=== PATIENT | female | born 1995 | race Caucasian/White ===

== ENCOUNTER 2016-07-02 18:06 | Emergency (ER) | payer SELFPAY ==
[2016-07-02 19:07] VITALS: BP 115/78
--- NOTE | 2016-07-02 19:50 | UC ---
Complaint Female HPI - HPI Summary HPI Summary: compliant of pain with urination for the past 2 days increased frequency and urgency today started having flank pain intermittent bilaterally denies fever and chills took some cranberry supplements without relief - History Of Current Complaint Chief Complaint: UCGU Stated Complaint: BACK PAIN,BURNING URINATING Time Seen by Provider: 07/02/16 19:44 Hx Obtained From: Patient Hx Last Menstrual Period: MIRENA IUD - Allergies/Home Medications Allergies/Adverse Reactions: Allergies Allergy/AdvReac Type Severity Reaction Status Date / Time Cefaclor [From [facility]] Allergy Intermediate Rash Verified 07/02/16 19:07 Latex Allergy Intermediate Rash Verified 07/02/16 19:07 Penicillins Allergy Intermediate Rash Verified 07/02/16 19:07 Sulfa Drugs Allergy Intermediate Rash Verified 07/02/16 19:07 Home Medications: Home Medications Cranberry (Vaccinium Macrocarp [Cranberry] 1 pow XX 07/02/16 [History] PMH/Surg Hx/FS Hx/Imm Hx Previously Healthy: Yes Respiratory History Of: Reports: Asthma - Surgical History Surgical History: Yes Surgery Procedure, Year, and Place: 2 HERNIA REPAIR X2 - Family History Known Family History: Positive: None, Other - Positive FMH of poor dentition. Negative: Hypertension, Diabetes - Social History Occupation: Employed Full-time Lives: With Family Alcohol Use: Occasionally Substance Use Type: None Smoking Status (MU): Current Every Day Smoker Type: Cigarettes Amount Used/How Often: 4-5 CIG/DAY Household Exposure Type: Cigarettes - Immunization History Most Recent Influenza Vaccination: no Review of Systems Constitutional: Negative Skin: Negative Eyes: Negative ENT: Negative Respiratory: Negative Cardiovascular: Negative Gastrointestinal: Negative Genitourinary: Dysuria, Frequency, Urgency Motor: Negative Neurovascular: Negative Musculoskeletal: Negative Neurological: Negative Psychological: Negative All Other Systems Reviewed And Are Negative: Yes Physical Exam Triage Information Reviewed: Yes Appearance: No Pain Distress, Well-Nourished Vital Signs: Initial Vital Signs Temp 98.3 F 07/02/16 19:04 Pulse 66 07/02/16 19:04 Resp 16 07/02/16 19:04 BP 115/78 07/02/16 19:04 Pulse Ox 100 07/02/16 19:04 Vital Signs Reviewed: Yes Eyes: Positive: Conjunctiva Clear ENT: Positive: Pharynx normal, TMs normal Neck: Positive: No Lymphadenopathy Respiratory: Positive: Lungs clear, Normal breath sounds, No respiratory distress, No accessory muscle use Cardiovascular: Positive: RRR, No Murmur, Pulses Normal Abdomen Description: Positive: Nontender, No Organomegaly, Soft, CVA Tenderness (L). Negative: CVA Tenderness (R), Distended Bowel Sounds: Positive: Present Musculoskeletal: Positive: No Edema Neurological: Positive: Alert Psychological Exam: Normal Skin Exam: Normal Complaint Female Dx - Course Course Of Treatment: exam completed. will treat with cipro d/t left flank pain. discussed blood in urine and possibilitu of kidney stone. discussed s/s of when to seek emergent care - Differential Dx/Diagnosis Differential Diagnosis/HQI/PQRI: Urinary Tract Infection, Other - pylenephritis Provider Diagnoses: UTI- possible pyleonephritis Discharge - Discharge Plan Condition: Stable Disposition: HOME Prescriptions: Ciprofloxacin TAB* [Cipro 500 MG TAB*] 500 mg PO BID #14 tab Phenazopyridine TAB* [Pyridium 100 mg TAB*] 100 mg PO TID #6 tab Patient Education Materials: Urinary Tract Infection in Women (ED) Referrals: CARMELO Saavedra [Primary Care Provider] - Additional Instructions: Please take antibiotic as directed Increase fluids and rest Take acetaminophen or ibuprofen for fever or pain You have blood in your urine- if pain increase please go to the emergency room because you may have a kidney stone. Please review your discharge instructions. If your symptoms do not improve please call your primary care provider or return to urgent care.
[2016-07-02] MEDS ORDERED: Ciprofloxacin TAB* 500 MG PO ONE (19:53)
[2016-07-02] MEDS: Phenazopyridine TAB* 100 MG PO ONE ×2 (20:02→20:03)
== END 2016-07-02 20:08 | disposition home or self-care (01) ==
LOC: UCEAST 18:06
DX: N39.0 Urinary tract infection, site not specified (principal); J45.909 Unspecified asthma, uncomplicated; Z88.0 Allergy status to penicillin; Z88.2 Allergy status to sulfonamides; Z88.1 Allergy status to other antibiotic agents; Z91.040 Latex allergy status; F17.210 Nicotine dependence, cigarettes, uncomplicated
CPT/HCPCS: 81003; 87077; 87086; 99212; A9270-GY; G0463

== ENCOUNTER 2016-08-30 12:23 | Emergency (ER) | payer SELFPAY ==
[2016-08-30 12:45] VITALS: BP 109/78
--- NOTE | 2016-08-30 13:39 | UC ---
Dental HPI - HPI Summary HPI Summary: Pt presents with c/o dental fracture, pain and swelling to left upper canine. Pt has generalized poor dentition and is waiting for dental insurance to be available from new job to have teeth extracted and get dentures. - History of Current Complaint Chief Complaint: UCDentalProblem Stated Complaint: DENTAL PAIN Time Seen by Provider: 08/30/16 12:51 Hx Obtained From: Patient Hx Last Menstrual Period: MIRENA IUD Onset/Duration: Gradual Onset Severity: Moderate Pain Intensity: 6 Pain Scale Used: 0-10 Numeric Aggravating: Heat, Cold, Chewing Related History: Swelling - Allergies/Home Medications Allergies/Adverse Reactions: Allergies Allergy/AdvReac Type Severity Reaction Status Date / Time Cefaclor [From [facility]] Allergy Intermediate Rash Verified 07/02/16 19:07 Latex Allergy Intermediate Rash Verified 07/02/16 19:07 Penicillins Allergy Intermediate Rash Verified 07/02/16 19:07 Sulfa Drugs Allergy Intermediate Rash Verified 07/02/16 19:07 PMH/Surg Hx/FS Hx/Imm Hx Previously Healthy: Yes - Surgical History Surgical History: Yes Surgery Procedure, Year, and Place: 2 HERNIA REPAIR X2 - Family History Known Family History: Positive: Other - Positive FMH of poor dentition. Negative: Hypertension, Diabetes - Social History Alcohol Use: Occasionally Substance Use Type: None Smoking Status (MU): Current Every Day Smoker Type: Cigarettes Amount Used/How Often: 4-5 CIG/DAY Household Exposure Type: Cigarettes - Immunization History Most Recent Influenza Vaccination: no Review of Systems Constitutional: Negative Skin: Negative Eyes: Negative ENT: Dental Pain - gum swelling, gross dental decay and poor dentition Respiratory: Negative Cardiovascular: Negative Gastrointestinal: Negative Genitourinary: Negative Motor: Negative Neurovascular: Negative Musculoskeletal: Negative Neurological: Negative Psychological: Negative All Other Systems Reviewed And Are Negative: Yes Physical Exam Triage Information Reviewed: Yes Appearance: Well-Appearing Vital Signs: Initial Vital Signs Temp 98.2 F 08/30/16 12:42 Pulse 79 08/30/16 12:42 Resp 16 08/30/16 12:42 BP 109/78 08/30/16 12:42 Pulse Ox 100 08/30/16 12:42 Vital Signs Reviewed: Yes Eye Exam: Normal ENT Exam: Normal Dental Exam: Other Dental: Positive: Percussion Tenderness @ - generalized, Gross Decay/Caries @, Dental Fracture @ - multiple, Abscess @ - left upper gum above canine Neck exam: Normal Respiratory Exam: Normal Respiratory: Positive: No respiratory distress Musculoskeletal Exam: Normal Neurological Exam: Normal Psychological Exam: Normal Skin Exam: Normal Dental Complaint Course/Dx - Differential Dx/Diagnosis Differential Diagnosis/Dx: Dental Abscess, Dental Caries, Fractured Tooth Provider Diagnoses: dental abscess. poor dentition Discharge - Discharge Plan Condition: Stable Disposition: HOME Prescriptions: Clindamycin CAP* [Cleocin 150 MG CAP*] 150 mg PO Q6H #60 cap Patient Education Materials: Dental Abscess (ED), Acute Dental Trauma (ED) Referrals: CARMELO Saavedra [Primary Care Provider] - Kasi Bahena DMD [Doctor of Dental Medicine] - Additional Instructions: Please follow up with your dental care provider. We have referred you to an oral surgeon for evaluation of your dental care needs.
== END 2016-08-30 13:02 | disposition home or self-care (01) ==
LOC: UCCORT 12:23
DX: K04.7 Periapical abscess without sinus (principal); Z88.0 Allergy status to penicillin; Z88.2 Allergy status to sulfonamides; Z88.1 Allergy status to other antibiotic agents; Z91.040 Latex allergy status; F17.210 Nicotine dependence, cigarettes, uncomplicated
CPT/HCPCS: 99212; G0463

== ENCOUNTER 2017-02-24 13:10 | Emergency (ER) | payer SELFPAY ==
--- NOTE | 2017-02-24 15:15 | UC ---
Complaint Female HPI - HPI Summary HPI Summary: pain and burning with urination urinary incont today - History Of Current Complaint Chief Complaint: UCGU Stated Complaint: URINARY Time Seen by Provider: 02/24/17 15:13 Hx Obtained From: Patient Hx Last Menstrual Period: MIRENA IUD ?: No Onset/Duration: Gradual Onset, Lasting Days, Still Present, Worse Since - today Timing: Constant Severity Initially: Mild Severity Currently: Moderate Character: Burning Aggravating Factor(s): Urination Alleviating Factor(s): Nothing Associated Signs And Symptoms: Positive: Negative - Allergies/Home Medications Allergies/Adverse Reactions: Allergies Allergy/AdvReac Type Severity Reaction Status Date / Time Cefaclor [From Ceclor] Allergy Intermediate Rash Verified 02/24/17 15:19 Latex Allergy Intermediate Rash Verified 02/24/17 15:19 Penicillins Allergy Intermediate Rash Verified 02/24/17 15:19 Sulfa Drugs Allergy Intermediate Rash Verified 02/24/17 15:19 PMH/Surg Hx/FS Hx/Imm Hx Previously Healthy: Yes - Surgical History Surgical History: Yes Surgery Procedure, Year, and Place: 2 HERNIA REPAIR X2 - Family History Known Family History: Positive: None Negative: Hypertension, Diabetes - Social History Occupation: Unemployed Lives: With Family Alcohol Use: Occasionally Substance Use Type: None Smoking Status (MU): Current Every Day Smoker Type: Cigarettes Amount Used/How Often: 4-5 CIG/DAY Household Exposure Type: Cigarettes Cessation Counseling: Patient Advised to Stop - Immunization History Most Recent Influenza Vaccination: no Review of Systems Constitutional: Negative Skin: Negative Eyes: Negative ENT: Negative Respiratory: Negative Cardiovascular: Negative Gastrointestinal: Negative Genitourinary: Dysuria, Hematuria, Frequency, Urgency Motor: Negative Neurovascular: Negative Musculoskeletal: Negative Neurological: Negative Psychological: Negative Is Patient Immunocompromised?: No All Other Systems Reviewed And Are Negative: Yes Physical Exam Triage Information Reviewed: Yes Appearance: Well-Appearing, No Pain Distress, Well-Nourished Vital Signs Reviewed: Yes Eye Exam: Normal Eyes: Positive: Conjunctiva Clear ENT Exam: Normal ENT: Positive: Normal ENT inspection, Hearing grossly normal, Pharynx normal, Uvula midline. Negative: Nasal congestion, TMs normal, Tonsillar swelling, Dental tenderness, Sinus tenderness Dental Exam: Normal Neck exam: Normal Neck: Positive: Supple, Nontender Respiratory Exam: Normal Respiratory: Positive: Chest non-tender, No respiratory distress, No accessory muscle use Cardiovascular Exam: Normal Cardiovascular: Positive: RRR, Pulses Normal, Brisk Capillary Refill Abdominal Exam: Normal Abdomen Description: Positive: No Organomegaly, Soft, Other: - suprapubic tenderness. Negative: CVA Tenderness (R), CVA Tenderness (L), Distended, Guarding, McBurney's Point Tenderness Bowel Sounds: Positive: Present Musculoskeletal Exam: Normal Musculoskeletal: Positive: Strength Intact, ROM Intact, No Edema Neurological Exam: Normal Neurological: Positive: Alert, Muscle Tone Normal Psychological Exam: Normal Skin Exam: Normal Diagnostics - Laboratory Diagnostic Studies Completed/Ordered: + 1 Leuko Complaint Female Dx - Course Course Of Treatment: macrobid, pyridium, increase fluids follow with pcp prn, culture urine - Differential Dx/Diagnosis Provider Diagnoses: urinary tract infection Discharge - Discharge Plan Condition: Stable Disposition: HOME Prescriptions: Nitrofurantoin Monohyd Macro [Macrobid] 100 mg PO BID #10 cap Phenazopyridine TAB* [Pyridium 100 mg TAB*] 100 mg PO TID PRN #9 tab PRN Reason: urinary pain and burning Patient Education Materials: Phenazopyridine (By mouth), Urinary Tract Infection in Women (ED) [place]: [facility] [place] [facility] [place]] - If Needed
[2017-02-24 15:19] VITALS: BP 110/63
--- NOTE | 2017-02-28 12:16 | UC ---
- Progress Note Progress Note: no change Course/Dx - Course Course Of Treatment: macrobid, pyridium, increase fluids follow with pcp prn, culture urine
== END 2017-02-24 15:34 | disposition home or self-care (01) ==
LOC: UCCORT 13:10
DX: N39.0 Urinary tract infection, site not specified (principal); F17.210 Nicotine dependence, cigarettes, uncomplicated; Z88.1 Allergy status to other antibiotic agents; Z88.0 Allergy status to penicillin; Z88.2 Allergy status to sulfonamides; Z91.040 Latex allergy status
CPT/HCPCS: 81003; 84702; 87077; 87086; 87186; 99212; G0463

== ENCOUNTER 2017-04-18 10:26 | Emergency (ER) | payer SELFPAY ==
[2017-04-18 11:41] VITALS: BP 113/63
--- NOTE | 2017-04-18 12:03 | ED ---
Upper Extremity Pain - HPI Summary HPI Summary: 21 yr old with the complaint of left hand pain. The patient states a month ago she was sleeping and woke up with left hand middle finger pain. She states she was sleeping on a clenched fist. Ever since then she feels like she has trouble flexing and extending the left middle finger. No fever, chills, swelling, bruising. No obvious history of any trauma. She has no other complaints. - History of Current Complaint Chief Complaint: UCUpperExtremity Stated Complaint: LEFT MIDDLE FINGER COMPLAINT Time Seen by Provider: 04/18/17 11:42 Hx Last Menstrual Period: HAS AN IUD, DOES NOT HAVE REG PERIODS - Allergies/Home Medications Allergies/Adverse Reactions: Allergies Allergy/AdvReac Type Severity Reaction Status Date / Time cefaclor [From Ceclor] Allergy Unknown Rash Verified 04/18/17 11:32 latex Allergy Unknown Rash Verified 04/18/17 11:32 Penicillins Allergy Unknown Rash Verified 04/18/17 11:32 Sulfa (Sulfonamide Allergy Unknown Rash Verified 04/18/17 11:32 Antibiotics) Home Medications: Home Medications Acetaminophen [Pain Relief] 500 mg PO PRN 04/18/17 [History] PMH/Surg Hx/FS Hx/Imm Hx Respiratory History: Reports: Hx Asthma - Surgical History Surgery Procedure, Year, and Place: 2 HERNIA REPAIR X2 Infectious Disease History: No Infectious Disease History: Denies: Traveled Outside the [place] in Last 30 Days - Family History Known Family History: Positive: None, Other - Positive FMH of poor dentition. Negative: Hypertension, Diabetes - Social History Occupation: Employed Full-time Alcohol Use: Rare Substance Use Type: Reports: None Smoking Status (MU): Light Every Day Tobacco Smoker Type: Cigarettes Amount Used/How Often: LESS THAN 1/2 PPD Review of Systems Constitutional: Negative Positive: Other - left middle finger pain All Other Systems Reviewed And Are Negative: Yes Physical Exam Triage Information Reviewed: Yes Vital Signs On Initial Exam: Initial Vitals Temp Pulse Resp BP Pulse Ox 98.1 F 73 16 113/63 99 04/18/17 11:34 04/18/17 11:34 04/18/17 11:34 04/18/17 11:34 04/18/17 11:34 Vital Signs Reviewed: Yes Appearance: Positive: Well-Appearing, No Pain Distress Skin: Positive: Warm Eyes: Positive: EOMI Neck: Positive: Nontender Respiratory/Lung Sounds: Positive: Clear to Auscultation Cardiovascular: Positive: Pulses are Symmetrical in both Upper and Lower Extremities - radial Musculoskeletal: Positive: Other - left hand without deformity, no sts, no bruising, no swelling, no increase warmth. I am able to flex and extend her left middle finger at the DIP, PIP and MP joints passively and she has some tenderness in the palm over the middle finger flexor tendon. No mass or swelling. She has intact capillary refill. Diagnostics - Vital Signs Vital Signs Temp Pulse Resp BP Pulse Ox 04/18/17 11:34 98.1 F 73 16 113/63 99 - Laboratory Lab Statement: Any lab studies that have been ordered have been reviewed, and results considered in the medical decision making process. - Radiology left hand Xray Interpretation: No Acute Changes Radiology Interpretation Completed By: Radiologist Course/Dx - Course Course Of Treatment: 21 yr old female with left hand pain. - Diagnoses Provider Diagnoses: Tendinitis of flexor tendon of left hand Discharge - Discharge Plan Condition: Good Disposition: HOME Prescriptions: Ibuprofen TAB* [Motrin TAB* 600 MG] 600 mg PO Q6H PRN #14 tab PRN Reason: Pain Patient Education Materials: Tendinitis (ED) Forms: *Work Release Referrals: CARMELO Saavedra [Primary Care Provider] - Virginia Garcia MD [Medical Doctor] - 2 Days Jose Gao MD [Medical Doctor] - 2 Days
--- NOTE | 2017-04-18 12:07 | RAD ---
INDICATION: Left hand pain COMPARISON: None TECHNIQUE: AP, lateral, and oblique views were obtained. FINDINGS: The bony structures, joint spaces, and soft tissues are normal for age. IMPRESSION: NEGATIVE EXAMINATION.
== END 2017-04-18 12:38 | disposition home or self-care (01) ==
LOC: UCCORT 10:26
DX: M77.9 Enthesopathy, unspecified (principal); F17.210 Nicotine dependence, cigarettes, uncomplicated
CPT/HCPCS: 99212; G0463

== ENCOUNTER 2017-05-16 08:22 | Emergency (ER) | payer SELFPAY ==
[2017-05-16 08:38] VITALS: BP 97/66
--- NOTE | 2017-05-16 08:56 | UC ---
UC Dental HPI - HPI Summary HPI Summary: Pt c/o sudden onset right facial cheek swelling and generalized teeth tenderness. - History of Current Complaint Chief Complaint: UCDentalProblem Stated Complaint: DENTAL COMPLAINT Time Seen by Provider: 05/16/17 08:46 Hx Obtained From: Patient Hx Last Menstrual Period: IUD ?: No Onset/Duration: Sudden Onset, Lasting Hours Severity: Mild Pain Intensity: 3 Aggravating Factor(s): Heat, Cold, Chewing Alleviating Factor(s): OTC Meds Related History: Swelling - Allergies/Home Medications Allergies/Adverse Reactions: Allergies Allergy/AdvReac Type Severity Reaction Status Date / Time cefaclor [From Ceclor] Allergy Unknown Rash Verified 05/16/17 08:38 latex Allergy Unknown Rash Verified 05/16/17 08:38 Penicillins Allergy Unknown Rash Verified 05/16/17 08:38 Sulfa (Sulfonamide Allergy Unknown Rash Verified 05/16/17 08:38 Antibiotics) PMH/Surg Hx/FS Hx/Imm Hx Previously Healthy: Yes - Surgical History Surgical History: Yes Surgery Procedure, Year, and Place: 2 HERNIA REPAIR X2 - Family History Known Family History: Positive: None, Other - Positive FMH of poor dentition. Negative: Hypertension, Diabetes - Social History Occupation: Employed Full-time Lives: With Family Alcohol Use: Rare Substance Use Type: None Smoking Status (MU): Light Every Day Tobacco Smoker Type: Cigarettes Amount Used/How Often: LESS THAN 1/2 PPD Have You Smoked in the Last Year: Yes Household Exposure Type: Cigarettes - Immunization History Most Recent Influenza Vaccination: no Review of Systems Constitutional: Negative Skin: Negative Eyes: Negative ENT: Dental Pain Respiratory: Negative Cardiovascular: Negative Gastrointestinal: Negative Genitourinary: Negative Motor: Negative Neurovascular: Negative Musculoskeletal: Negative Neurological: Negative Psychological: Negative Is Patient Immunocompromised?: No All Other Systems Reviewed And Are Negative: Yes Physical Exam Triage Information Reviewed: Yes Appearance: Ill-Appearing, Pain Distress Vital Signs: Initial Vital Signs Temp 98.2 F 05/16/17 08:33 Pulse 82 05/16/17 08:33 Resp 18 05/16/17 08:33 BP 97/66 05/16/17 08:33 Pulse Ox 100 05/16/17 08:33 Vital Signs Reviewed: Yes Eye Exam: Normal ENT Exam: Normal Dental Exam: Other Dental: Positive: Percussion Tenderness @ - right upper molars, Gross Decay/ Caries @, Abscess @ - right upper gum Neck exam: Normal Respiratory Exam: Normal Cardiovascular Exam: Normal Musculoskeletal Exam: Normal Neurological Exam: Normal Psychological Exam: Normal Skin Exam: Normal Dental Complaint Course/Dx - Differential Dx/Diagnosis Differential Diagnosis/Dx: Dental Abscess, Dental Caries, Fractured Tooth Provider Diagnoses: dental abscess Discharge - Sign-Out/Discharge Documenting (check all that apply): Discharge - Discharge Plan Condition: Stable Disposition: HOME Prescriptions: Clindamycin Cap(NF) [Clindamycin Cap 300 mg Cap(NF)] 300 mg PO Q8H #30 cap Magic Mouth Was-TANJA/MAAL/LIDO* 5 ml SWISH SPIT QID PRN #100 ml PRN Reason: Pain predniSONE TAB* [Deltasone TAB*] 30 mg PO DAILY #9 tab Patient Education Materials: Dental Abscess (ED) Referrals: CARMELO Saavedra [Primary Care Provider] - Additional Instructions: Please follow up with a Dental care provider as soon as possible. We have provided a list of dental care providers for you as a reference. - Billing Disposition and Condition Condition: STABLE Disposition: HOME
== END 2017-05-16 09:04 | disposition home or self-care (01) ==
LOC: UCCORT 08:22
DX: K04.7 Periapical abscess without sinus (principal); Z88.0 Allergy status to penicillin; Z88.2 Allergy status to sulfonamides; Z88.1 Allergy status to other antibiotic agents; Z91.040 Latex allergy status; F17.210 Nicotine dependence, cigarettes, uncomplicated
CPT/HCPCS: 99212; G0463

== ENCOUNTER 2017-07-09 09:56 | Emergency (ER) | payer OTHER ==
[2017-07-09 10:13] VITALS: BP 107/61
--- NOTE | 2017-07-09 11:01 | UC ---
Dental HPI - HPI Summary HPI Summary: Pt present with dental pain - pt with recurrent dental infections. does not currently have a dentist - states recently got tetanus Pt denies fever, chills Pain started last night + TTP No fevers Pt took Motrin and Tylenol with little relif Pt has had similar before Pt's medications reviewed this visit - History of Current Complaint Chief Complaint: UCDentalProblem Stated Complaint: oral complaint Time Seen by Provider: 07/09/17 10:43 Hx Obtained From: Patient Hx Last Menstrual Period: unknown Onset/Duration: Gradual Onset Severity: Moderate Pain Intensity: 6 Pain Scale Used: 0-10 Numeric Aggravating Factor(s): Nothing Alleviating Factor(s): Nothing - Allergies/Home Medications Allergies/Adverse Reactions: Allergies Allergy/AdvReac Type Severity Reaction Status Date / Time cefaclor [From [facility]] Allergy Unknown Rash Verified 07/09/17 10:07 latex Allergy Unknown Rash Verified 07/09/17 10:07 Penicillins Allergy Unknown Rash Verified 07/09/17 10:07 Sulfa (Sulfonamide Allergy Unknown Rash Verified 07/09/17 10:07 Antibiotics) Home Medications: Home Medications Acetaminophen 650 mg PO ONCE PRN 07/09/17 [History Confirmed 07/09/17] PMH/Surg Hx/FS Hx/Imm Hx Previously Healthy: Yes - Surgical History Surgical History: Yes Surgery Procedure, Year, and Place: 2 HERNIA REPAIR X2 - Family History Known Family History: Positive: None, Other - Positive FMH of poor dentition. Negative: Hypertension, Diabetes - Social History Occupation: Employed Full-time Lives: With Family Alcohol Use: Rare Substance Use Type: None Smoking Status (MU): Heavy Every Day Tobacco Smoker Type: Cigarettes Amount Used/How Often: 1/2 PPD Have You Smoked in the Last Year: Yes Household Exposure Type: Cigarettes - Immunization History Most Recent Influenza Vaccination: no Review of Systems Constitutional: Negative Skin: Negative ENT: Dental Pain All Other Systems Reviewed And Are Negative: Yes Physical Exam Triage Information Reviewed: Yes Appearance: Well-Appearing, No Pain Distress, Well-Nourished Vital Signs: Initial Vital Signs Temp 98.6 F 07/09/17 10:08 Pulse 77 07/09/17 10:08 Resp 18 07/09/17 10:08 BP 107/61 07/09/17 10:08 Pulse Ox 100 07/09/17 10:08 Vital Signs Reviewed: Yes Eye Exam: Normal Eyes: Positive: Conjunctiva Clear ENT Exam: Normal ENT: Positive: Normal ENT inspection, Hearing grossly normal, TMs normal Dental: Positive: Other: - Pt with extensive dental caries and gingival disease + TTP #8 with large cavity No fluctuance no edema, bleeding no facial edema Neck exam: Normal Neck: Positive: 1 Respiratory Exam: Normal Respiratory: Positive: Chest non-tender, Lungs clear, Normal breath sounds, No respiratory distress, No accessory muscle use Cardiovascular Exam: Normal Cardiovascular: Positive: RRR, No Murmur Abdominal Exam: Normal Abdomen Description: Positive: Nontender, No Organomegaly, Soft Bowel Sounds: Positive: Present Musculoskeletal Exam: Normal Musculoskeletal: Positive: Strength Intact Neurological Exam: Normal Neurological: Positive: Alert Psychological Exam: Normal Skin Exam: Normal Dental Complaint Course/Dx - Course Course Of Treatment: Pt with dental pain. Pt with poor dentition. Will start clinda. motrin/apap. ambusol. dental referral lists given - Differential Dx/Diagnosis Provider Diagnoses: dental pain Discharge - Sign-Out/Discharge Documenting (check all that apply): Discharge/Admit/Transfer - Discharge Plan Condition: Stable Disposition: HOME Prescriptions: Clindamycin HCl 300 mg PO Q8HR #30 capsule Patient Education Materials: Toothache (ED) Referrals: CARMELO Saavedra [Primary Care Provider] - Additional Instructions: - Okay to alternate ibuprofen (Advil, Motrin) 600mg and Tylenol every 3 hours for pain. Take with food. Do NOT take for more than 4-5 days -Swish and spit with warm salt water 3-4 times a day -Take anitbiotics as prescribed until gone -Stay well hydrated - avoid excess caffeine and all alcohol -Contact a clinic or go to the walk in clinic from the list provided to you today. If you develop swelling inside your mouth, difficulty with chewing or any other concerns it is recommended you go to the emergency department for further management - Billing Disposition and Condition Condition: STABLE Disposition: HOME
[2017-07-09] MEDS ORDERED: Ibuprofen TAB* 200 MG PO ONE (11:10)
== END 2017-07-09 11:23 | disposition home or self-care (01) ==
LOC: UCCORT 09:56
DX: K08.89 Other specified disorders of teeth and supporting structures (principal); F17.210 Nicotine dependence, cigarettes, uncomplicated; Z88.3 Allergy status to other anti-infective agents; Z88.0 Allergy status to penicillin; Z88.5 Allergy status to narcotic agent
CPT/HCPCS: 99212; A9270-GY; G0463

== ENCOUNTER 2018-01-11 14:41 | Emergency (ER) | payer OTHER ==
[2018-01-11 15:12] VITALS: BP 114/72
--- NOTE | 2018-01-11 15:38 | UC ---
UC General HPI - HPI Summary HPI Summary: 1. 2 day hx white vaginal d/c with some itching and a little burn with urination but no frequency or urgency. 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 whic was neg. states hx yeast infection and this feels the same. 2. 7 day hx sinus congestion and green discharge. no fever. - History of Current Complaint Chief Complaint: UCRespiratory Stated Complaint: SINUS CONCERN Time Seen by Provider: 01/11/18 15:31 Hx Obtained From: Patient Hx Last Menstrual Period: IUD Onset/Duration: Gradual Onset Pain Intensity: 6 Associated Signs & Symptoms: Negative: Agitation, Fever - Allergy/Home Medications Allergies/Adverse Reactions: Allergies Allergy/AdvReac Type Severity Reaction Status Date / Time cefaclor [From Ceclor] Allergy Unknown Rash Verified 01/11/18 15:07 latex Allergy Unknown Rash Verified 01/11/18 15:07 Penicillins Allergy Unknown Rash Verified 01/11/18 15:07 Sulfa (Sulfonamide Allergy Unknown Rash Verified 01/11/18 15:07 Antibiotics) PMH/Surg Hx/FS Hx/Imm Hx Previously Healthy: Yes - Surgical History Surgical History: Yes Surgery Procedure, Year, and Place: 2 HERNIA REPAIR - Family History Known Family History: Positive: None, Other - Positive FMH of poor dentition. Negative: Hypertension, Diabetes - Social History Alcohol Use: Rare Substance Use Type: None Smoking Status (MU): Heavy Every Day Tobacco Smoker Type: Cigarettes Amount Used/How Often: 1/2 PPD Have You Smoked in the Last Year: Yes Household Exposure Type: Cigarettes - Immunization History Most Recent Influenza Vaccination: no Most Recent Tetanus Shot: UTD Vaccination Up to Date: Yes Review of Systems All Other Systems Reviewed And Are Negative: Yes Constitutional: Positive: Negative Skin: Positive: Negative Eyes: Positive: Negative ENT: Positive: Nasal Discharge, Sinus Congestion, Sinus Pain/Tenderness Respiratory: Positive: Negative Cardiovascular: Positive: Negative Gastrointestinal: Positive: Negative Genitourinary: Positive: Dysuria, Vaginal/Penile Itching, Vaginal/Penile Discharge Motor: Positive: Negative Neurovascular: Positive: Negative Musculoskeletal: Positive: Negative Neurological: Positive: Negative Psychological: Positive: Negative Is Patient Immunocompromised?: No Physical Exam Triage Information Reviewed: Yes Appearance: Well-Appearing Vital Signs: Initial Vital Signs Temp 98.3 F 01/11/18 15:08 Pulse 87 01/11/18 15:08 Resp 14 01/11/18 15:08 BP 114/72 01/11/18 15:08 Pulse Ox 100 01/11/18 15:08 Vital Signs Reviewed: Yes Eyes: Positive: Conjunctiva Clear ENT: Positive: Pharynx normal, Nasal congestion, Nasal drainage - clear, TMs normal. Negative: Sinus tenderness Neck: Positive: Supple, Nontender, No Lymphadenopathy Respiratory: Positive: Lungs clear, Normal breath sounds Cardiovascular: Positive: RRR, No Murmur Abdomen Description: Positive: Nontender, No Organomegaly, Soft. 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. Musculoskeletal: Positive: ROM Intact Neurological: Positive: Alert Psychological: Positive: Age Appropriate Behavior Skin Exam: Normal Course/Dx - Course Course Of Treatment: pt declined pelvic exam thus will tx for presumptive yeast vaginitis. - Differential Dx - Multi-Symptom Provider Diagnoses: uri. vaginitis Discharge - Sign-Out/Discharge Documenting (check all that apply): Patient Departure All imaging exams completed and their final reports reviewed: No Studies - Discharge Plan Condition: Stable Disposition: HOME Prescriptions: Fluconazole [Diflucan 150 MG (NF)] 150 mg PO ONCE #1 tab Patient Education Materials: Vaginitis (ED), Upper Respiratory Infection (DC) Referrals: CARMELO Saavedra [Medical Doctor] - Additional Instructions: if not better within 5 days or sooner if worse. - Billing Disposition and Condition Condition: STABLE Disposition: Home
== END 2018-01-11 15:51 | disposition home or self-care (01) ==
LOC: UCCORT 14:41
DX: N76.0 Acute vaginitis (principal); J06.9 Acute upper respiratory infection, unspecified; J34.89 Other specified disorders of nose and nasal sinuses; F17.210 Nicotine dependence, cigarettes, uncomplicated; Z88.1 Allergy status to other antibiotic agents; Z88.0 Allergy status to penicillin; Z88.2 Allergy status to sulfonamides; Z91.040 Latex allergy status
CPT/HCPCS: 81003; 87086; 99212; G0463

== ENCOUNTER 2018-03-02 13:37 | Emergency (ER) | payer OTHER ==
[2018-03-02 13:58] VITALS: BP 177/77
--- NOTE | 2018-03-02 14:03 | UC ---
Eye Complaint HPI - HPI Summary HPI Summary: Pt c/o sudden onset of left eye redness, "itchiness", green discharge that began this afternoon . denies injury. - History of Current Complaint Chief Complaint: UCEye Stated Complaint: LEFT EYE CONCERN Time Seen by Provider: 03/02/18 13:56 Hx Obtained From: Patient Hx Last Menstrual Period: IUD ?: No Onset/Duration: Sudden Onset, Still Present Timing: Constant Severity Initially: Mild Severity Currently: Mild Pain Intensity: 0 Associated Signs And Symptoms: Positive: Drainage (Purulent) - Risk Factors Penetrating Injury Risk Factor: Negative Globe Rupture Risk Factors: Negative Acute Glaucoma Risk Factors: Negative Optic Artery Occlusion Risk Factors: Negative - Allergies/Home Medications Allergies/Adverse Reactions: Allergies Allergy/AdvReac Type Severity Reaction Status Date / Time cefaclor [From Ceclor] Allergy Unknown Rash Verified 01/11/18 15:07 latex Allergy Unknown Rash Verified 01/11/18 15:07 Penicillins Allergy Unknown Rash Verified 01/11/18 15:07 Sulfa (Sulfonamide Allergy Unknown Rash Verified 01/11/18 15:07 Antibiotics) PMH/Surg Hx/FS Hx/Imm Hx Previously Healthy: Yes - Surgical History Surgical History: Yes Surgery Procedure, Year, and Place: 2 HERNIA REPAIR - Family History Known Family History: Positive: None, Other - Positive FMH of poor dentition. Negative: Hypertension, Diabetes - Social History Occupation: Employed Full-time Lives: With Family Alcohol Use: Rare Substance Use Type: None Smoking Status (MU): Heavy Every Day Tobacco Smoker Type: Cigarettes Amount Used/How Often: 1/2 PPD Have You Smoked in the Last Year: Yes Household Exposure Type: Cigarettes - Immunization History Most Recent Influenza Vaccination: no Most Recent Tetanus Shot: UTD Vaccination Up to Date: Yes Review of Systems All Other Systems Reviewed And Are Negative: Yes Constitutional: Positive: Negative Skin: Positive: Negative Eyes: Positive: Drainage, Eye Redness ENT: Positive: Negative Respiratory: Positive: Negative Cardiovascular: Positive: Negative Gastrointestinal: Positive: Negative Genitourinary: Positive: Negative Motor: Positive: Negative Neurovascular: Positive: Negative Musculoskeletal: Positive: Negative Neurological: Positive: Negative Psychological: Positive: Negative Is Patient Immunocompromised?: No Physical Exam Triage Information Reviewed: Yes Appearance: Well-Appearing Vital Signs: Initial Vital Signs Temp 98.8 F 03/02/18 13:55 Pulse 86 03/02/18 13:55 Resp 20 03/02/18 13:55 BP 177/77 03/02/18 13:55 Pulse Ox 100 03/02/18 13:55 Vital Signs Reviewed: Yes Eyes: Positive: Conjunctiva Inflamed, Discharge - green ENT Exam: Normal Dental Exam: Normal Neck exam: Normal Respiratory: Positive: No respiratory distress Musculoskeletal Exam: Normal Neurological Exam: Normal Psychological Exam: Normal Skin Exam: Normal Eye Complaint Course/Dx - Differential Dx/Diagnosis Differential Diagnosis/HQI/PQRI: Conjunctivitis Provider Diagnosis: Conjunctivitis, left eye Discharge - Sign-Out/Discharge Documenting (check all that apply): Patient Departure All imaging exams completed and their final reports reviewed: No Studies - Discharge Plan Condition: Stable Disposition: HOME Prescriptions: Ofloxacin 0.3% (Eye Drop) [Ocuflox OPTH 0.3% (Eye Drop)] 3 drop LEFT EYE Q8H 7 Days #1 btl Patient Education Materials: Conjunctivitis (ED) Referrals: [facility] [Outside] No Primary Care Phys,NOPCP [Primary Care Provider] - - Billing Disposition and Condition Condition: STABLE Disposition: Home
== END 2018-03-02 14:08 | disposition home or self-care (01) ==
LOC: UCCORT 13:37
DX: H10.9 Unspecified conjunctivitis (principal); Z88.0 Allergy status to penicillin; Z88.1 Allergy status to other antibiotic agents
CPT/HCPCS: 99212; G0463

== ENCOUNTER 2018-12-14 12:27 | Emergency (ER) | payer OTHER ==
[2018-12-14 12:48] VITALS: BP 103/65
--- NOTE | 2018-12-14 13:11 | UC ---
Complaint Female HPI - HPI Summary HPI Summary: Pt presents with c/o sudden onset of Pelvic pressure, low back ache, and urgency X 4 days. - History Of Current Complaint Chief Complaint: UCGU Stated Complaint: URINARY COMPLAINT Time Seen by Provider: 12/14/18 12:51 Hx Obtained From: Patient Hx Last Menstrual Period: IUD ?: No Onset/Duration: Sudden Onset, Lasting Days, Still Present Timing: Constant Severity Initially: Mild Severity Currently: Mild Pain Intensity: 5 Character: Dull, Burning Aggravating Factor(s): Urination Alleviating Factor(s): Nothing Associated Signs And Symptoms: Positive: Back Pain - back ache - Risk Factors Ectopic Risk Factor: IUD Use Ovarian Torsion Risk Factor: Reproductive Age - Allergies/Home Medications Allergies/Adverse Reactions: Allergies Allergy/AdvReac Type Severity Reaction Status Date / Time cefaclor [From [facility]] Allergy Unknown Rash Verified 12/14/18 12:45 latex Allergy Unknown Rash Verified 12/14/18 12:45 Penicillins Allergy Unknown Rash Verified 12/14/18 12:45 Sulfa (Sulfonamide Allergy Unknown Rash Verified 12/14/18 12:45 Antibiotics) Home Medications: Home Medications Ibuprofen TAB* [Motrin TAB* 400 MG] 400 mg PO Q6H PRN 12/14/18 [History Confirmed 12/14/18] PMH/Surg Hx/FS Hx/Imm Hx Previously Healthy: Yes - Surgical History Surgical History: Yes Surgery Procedure, Year, and Place: 2 HERNIA REPAIR - Family History Known Family History: Positive: None, Other - Positive FMH of poor dentition. Negative: Hypertension, Diabetes - Social History Occupation: Employed Full-time Lives: With Family Alcohol Use: Rare Substance Use Type: None Smoking Status (MU): Heavy Every Day Tobacco Smoker Type: Cigarettes Amount Used/How Often: 1/2 PPD Have You Smoked in the Last Year: Yes Household Exposure Type: Cigarettes - Immunization History Most Recent Influenza Vaccination: no Most Recent Tetanus Shot: UTD Vaccination Up to Date: Yes Review of Systems All Other Systems Reviewed And Are Negative: Yes Constitutional: Positive: Negative Skin: Positive: Negative Eyes: Positive: Negative ENT: Positive: Negative Respiratory: Positive: Negative Cardiovascular: Positive: Negative Gastrointestinal: Positive: Negative Genitourinary: Positive: Frequency, Urgency Motor: Positive: Negative Neurovascular: Positive: Negative Musculoskeletal: Positive: Negative Neurological: Positive: Negative Psychological: Positive: Negative Is Patient Immunocompromised?: No Physical Exam Triage Information Reviewed: Yes Appearance: Well-Appearing Vital Signs: Initial Vital Signs Temp 98.8 F 12/14/18 12:43 Pulse 78 12/14/18 12:43 Resp 14 12/14/18 12:43 BP 103/65 12/14/18 12:43 Pulse Ox 99 12/14/18 12:43 Vital Signs Reviewed: Yes Eye Exam: Normal ENT Exam: Normal Dental Exam: Normal Neck exam: Normal Respiratory: Positive: No respiratory distress Musculoskeletal Exam: Normal Neurological Exam: Normal Psychological Exam: Normal Skin Exam: Normal Complaint Female Dx - Differential Dx/Diagnosis Differential Diagnosis/HQI/PQRI: Sexually Transmitted Disease, Urinary Tract Infection Provider Diagnosis: UTI (urinary tract infection) Discharge ED - Sign-Out/Discharge Documenting (check all that apply): Patient Departure All imaging exams completed and their final reports reviewed: No Studies - Discharge Plan Condition: Stable Disposition: HOME Prescriptions: Nitrofurantoin Monohyd/M-Cryst [Macrobid 100 mg Capsule] 100 mg PO Q12H #10 cap Patient Education Materials: Urinary Tract Infection in Women (ED) Referrals: [facility] [Outside] No Primary Care Phys,NOPCP [Primary Care Provider] - - Billing Disposition and Condition Condition: STABLE Disposition: Home
--- NOTE | 2018-12-16 09:40 | UC ---
- Progress Note Progress Note: Urine culture negative; please advise no growth, and that she can stop use of antibiotic. If symptoms persist, should have a follow up with PMD to look at other reasons for urine symptoms. Course/Dx - Diagnoses Provider Diagnoses: UTI (urinary tract infection) Discharge ED - Sign-Out/Discharge Documenting (check all that apply): Post-Discharge Follow Up All imaging exams completed and their final reports reviewed: No Studies - Discharge Plan Condition: Stable Disposition: HOME Prescriptions: Nitrofurantoin Monohyd/M-Cryst [Macrobid 100 mg Capsule] 100 mg PO Q12H #10 cap Patient Education Materials: Urinary Tract Infection in Women (ED) Referrals: [facility] [Outside] No Primary Care Phys,NOPCP [Primary Care Provider] - - Billing Disposition and Condition Condition: STABLE Disposition: Home
== END 2018-12-14 13:15 | disposition home or self-care (01) ==
LOC: UCCORT 12:27
DX: N39.0 Urinary tract infection, site not specified (principal); F17.210 Nicotine dependence, cigarettes, uncomplicated; Z88.1 Allergy status to other antibiotic agents; Z91.040 Latex allergy status; Z88.0 Allergy status to penicillin; Z88.2 Allergy status to sulfonamides
CPT/HCPCS: 81003; 84702; 87086; 99212; G0463